=== PATIENT | female | born 2000 | race Two or more races ===

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

== ENCOUNTER 2019-09-27 23:37 | Emergency (ER) | payer MEDICAID ==
[~2019-09-27] VITALS: Ht 154.9 cm; Wt 103.6 kg
[~2019-09-27 23:37] MED LIST changes: +METH500T PO; +ONDA4TAB6 PO
[2019-09-28] MEDS ORDERED: ibuprofen tablet 400 MG TABLET PO ONE (03:35)
[2019-09-28 03:50] VITALS: BP 138/88
== END 2019-09-28 03:52 | disposition home or self-care (01) ==
LOC: ER 23:37
DX: S93.402A Sprain of unspecified ligament of left ankle, initial encounter (principal); Z79.899 Other long term (current) drug therapy; W10.9XXA Fall (on) (from) unspecified stairs and steps, initial encounter; Y93.89 Activity, other specified; Y92.89 Other specified places as the place of occurrence of the external cause; Y99.8 Other external cause status
CPT/HCPCS: 73610; 99283

== ENCOUNTER 2020-05-23 09:46 | Emergency (ER) | payer MEDICAID ==
[~2020-05-23] VITALS: Ht 154.9 cm; Wt 99.5 kg
[2020-05-23] MEDS ORDERED: ondansetron/PF 4mg/2ml inj IV ONE (10:30)
[2020-05-23] MEDS ORDERED: normal saline 1000ML IV soln IVB ONE (10:30)
[2020-05-23 10:31] LABS: URINE HCG NEGATIVE (NEG)
[2020-05-23 10:32] LABS: CLARITY,URINE CLOUDY (Clear); COLOR,URINE YELLOW (Yellow); GLUCOSE, URINE NEGATIVE (Neg); KETONES,URINE NEGATIVE (Neg); LEUKOCYTE ESTERASE ,URINE NEGATIVE (Neg); NITRITES, URINE NEGATIVE (Neg); OCCULT BLOOD,URINE SMALL (Neg); PROTEIN,URINE TRACE mg/dl (Neg)
[2020-05-23 10:33] LABS: UA COLLECTION TYPE CLN CATCH MIDSTREAM
[2020-05-23 10:40] LABS: BASOPHILS # (AUTO) 0.1 X10'3 (0-0.2); BASOPHILS % (AUTO) 0.8 % (0-1); EOSINOPHILS # (AUTO) 0.1 X10'3 (0-0.9); EOSINOPHILS % (AUTO) 1.7 % (0-6); HEMATOCRIT 41.4 % (35.0-45.0); HEMOGLOBIN 13.9 g/dl (12.0-16.0); LYMPHOCYTES # (AUTO) 2.5 X10'3 (1.1-4.8); LYMPHOCYTES % (AUTO) 30.3 % (21-51); MEAN CORPUSCULAR HEMOGLOBIN 27.7 PG (27.0-31.0); MEAN CORPUSCULAR HGB CONC 33.7 g/dL (33.0-36.5); MEAN CORPUSCULAR VOLUME 82.1 FL (78-98); MEAN PLATELET VOLUME 8.4 FL (7.4-10.4); MONOCYTES # (AUTO) 0.4 X10'3 (0-0.9); MONOCYTES % (AUTO) 4.9 % (2-12); NEUTROPHILS # (AUTO) 5.2 X10'3 (1.8-7.7); NEUTROPHILS % (AUTO) 62.3 % (42-75); PLATELET COUNT 399 X10'3 (140-440); RED BLOOD COUNT 5.04 X10'6 (4.20-5.60); RED CELL DISTRIBUTION WIDTH 13.3 % (11.5-14.5); WHITE BLOOD COUNT 8.4 X10'3 (4.5-11.0)
[2020-05-23 10:48] LABS: MUCUS STRANDS MANY /LPF (Neg); SQUAMOUS EPITHELIAL CELL,UR MANY /LPF (FEW)
[2020-05-23 10:50] LABS: BACTERIA,URINE 2+ /HPF (Neg); WBC,URINE 0-4 /HPF (0-4)
[2020-05-23 10:51] LABS: ALANINE AMINOTRANSFERASE 29 U/L (12-78); ALBUMIN 3.5 G/DL (3.4-5.0); ALBUMIN/GLOBULIN RATIO 0.9 (1.1-1.5); ALKALINE PHOSPHATASE 130 IU/L (20-180); ANION GAP 7 (8-16); ASPARTATE AMINO TRANSFERASE 19 U/L (10-37); BILIRUBIN,TOTAL 0.4 MG/DL (0.1-1.0); BLOOD UREA NITROGEN 9 MG/DL (7-18); BUN/CREATININE RATIO 13.6 (6.6-38.0); CALCIUM 8.7 MG/DL (8.5-10.1); CHLORIDE 104 MMOL/L (99-107); CREATININE 0.66 MG/DL (0.40-0.90); GLUCOSE 87 MG/DL (70-104); LIPASE 62 U/L (73-393); SODIUM 137 MMOL/L (135-145); TOTAL CARBON DIOXIDE 25.6 MMOL/L (24-32); TOTAL PROTEIN 7.3 G/DL (6.4-8.2); eGFR > 90 ML/MIN
[2020-05-23] MEDS ORDERED: ONDA4TAB6 PO (11:01)
[2020-05-23 12:20] VITALS: BP 121/82
== END 2020-05-23 12:21 | disposition home or self-care (01) ==
LOC: ER 09:46
DX: A08.4 Viral intestinal infection, unspecified (principal); R19.7 Diarrhea, unspecified; Z79.899 Other long term (current) drug therapy; R10.11 Right upper quadrant pain
CPT/HCPCS: 36415; 80053; 81001; 81025; 83690; 85025; 96361; 96374; 99283; J2405; J7030

== ENCOUNTER 2020-07-05 10:59 | Emergency (ER) | payer MEDICAID ==
[~2020-07-05] VITALS: Ht 154.9 cm; Wt 100.0 kg
--- NOTE | 2020-07-05 11:46 | NUR ---
PT OFFERED ICE PACK BUT REFUSING.
[2020-07-05] MEDS ORDERED: TETanus/Pertussis (Acell)/Diphther VAC/PF (Tdap-Adult) 0.5ml syringe IMVAC ONE (12:00)
[2020-07-05] MEDS ORDERED: bacitracin 15gm ointment TP ONE (12:00)
[2020-07-05 13:28] VITALS: BP 124/72
== END 2020-07-05 13:51 | disposition home or self-care (01) ==
LOC: ER 10:59
DX: M25.561 Pain in right knee (principal); M25.562 Pain in left knee; M25.512 Pain in left shoulder; R51.9 Headache, unspecified; Z79.899 Other long term (current) drug therapy; W19.XXXA Unspecified fall, initial encounter; Y93.89 Activity, other specified; Y92.89 Other specified places as the place of occurrence of the external cause; Y99.8 Other external cause status
CPT/HCPCS: 73564; 90471; 90715; 99283

== ENCOUNTER 2021-03-27 13:24 | Emergency (ER) | payer MEDICAID ==
[~2021-03-27] VITALS: Ht 154.9 cm; Wt 224.0 kg
== END 2021-03-27 14:16 | disposition home or self-care (01) ==
LOC: ER 13:24
DX: R06.02 Shortness of breath (principal); Z20.822 Contact with and (suspected) exposure to COVID-19; Z79.899 Other long term (current) drug therapy
CPT/HCPCS: 87635; 99283; C9803

== ENCOUNTER 2025-03-21 16:46 | Emergency (ER) | payer MEDICAID ==
[~2025-03-21] VITALS: Ht 154.9 cm; Wt 117.3 kg
[2025-03-21 16:53] VITALS: BP_SYST 1; PULSE 87; RESP 15; O2SAT 98
--- NOTE | 2025-03-21 17:22 | RADIOLOGY REPORT ---
EXAM: DI FOOT, COMPLETE (3VW MIN) REASON FOR EXAM: FOOT PAIN RIGHT TECHNIQUE: AP, lateral, and oblique views of the right foot are submitted for review. COMPARISON: None FINDINGS: The bones demonstrate normal mineralization. There is no acute fracture or dislocation. Th e joint spaces are grossly maintained. The soft tissues are grossly unremarkable. IMPRESSION: No radiographic abnormality of the right foot.
--- NOTE | 2025-03-21 18:04 | Physician Documentation ---
History of Present Illness ~ Chief Complaint: Ankle pain Stated Complaint: FALL/R LEG PAIN Time Seen by MD: 17:01 [facility] Patient is seen today with complaints of pain of her right ankle after she rolled it just prior to arrival earlier today. Patient states she has never broken any of her ankle bones but states she has rolled her ankles many many times in the past. Patient has no new or other concern or complaint at this time. She states her right foot almost feels a little numb. Tetanus witin 5 years: No (Unkn) Medication Reconciliation Allergies: Coded Allergies: No Known Allergies (Unverified , 10/04/09) Scheduled Methocarbamol (Robaxin), 1 TAB PO Q8H Ondansetron Hcl (Zofran), 1 TAB PO Q6H Scheduled PRN Ondansetron Hcl (Zofran), 1 TAB PO Q6H PRN for nausea/vomiting Miscellaneous Medications Home Med List (No Home Medications), (Reported) Past Medical History Past Medical History: No Pertinent History Past Surgical History: no surgical history Alcohol Use: None Drug Use: none Lives with: Family Lives In: Home Occupation: student Review of Systems Constitutional: Denies: chills, fever, weakness Eyes: Denies: pain, blurred vision ENT: Denies: ear pain, nose pain, throat pain, mouth pain Respiratory: Denies: cough, shortness of breath Cardiovascular: Denies: chest pain, palpitations Gastrointestinal: Denies: abdominal pain, nausea, vomiting Genitourinary: Denies: burning, dysuria Female Genitalia: Denies: vaginal discharge, pelvic pain Neurological: Denies: headache, dizziness Musculoskeletal: Denies: pain, swelling Integumentary: Denies: rash, lesions Allergic/Immunologic: Denies: hives, itching Hematologic/Lymphatic: Denies: no symptoms reported Psychiatric: Denies: depression, anxiety Physical Exam Vital Signs: Temperature: 99.2, Heart Rate: 87, Respiratory Rate: 15, BP: 1/, Pulse Oximetry: 98, Weight: 117.270 Oxygen Flow Rate: 0 Physical Exam General: Awake and Alert, no acute distress. HEENT: Conjunctiva pink, Sclera clear, Mucus Membranes moist. Neck: Supple without masses and tenderness. Resp: Unlabored. Lungs clear to auscultation bilaterally. Heart: Regular Rate and rhythm, normal S1 and S2 without murmur, rub or gallop. Musculoskeletal: Patient on exam does have tenderness to palpation of the lateral malleoli and swelling of the lateral right ankle. Patient is neurovascularly intact distally. Motor function and strength intact distally. Extremities: No cyanosis,clubbing or edema. Skin: Warm and Dry. Progress Results/Orders Results/Orders Vital Signs 03/21/25 16:53 Temp 99.2 Pulse 87 Resp 15 B/P (MAP) 1/ Pulse Ox 98 O2 Flow Rate 0 EKG/XRAY/CT/US/VASC/MRI Bone/Soft Tissue X-Ray (Ext.) : Additional Comment X-ray interpreted by myself today shows no sign of acute fracture, no osteolytic or blastic lesions. Bones in anatomic alignment. DIAGNOSTIC RADIOLOGY Patient: BOWEN GUERRA Medical Record: [id number] [facility] : 2000, Age: 24 Sex: Female Location: ER Patient Status: [facility] ER Service Date/Time: 03/21/251703 Ordering Physician: LEILANI HUDSON MD Exam: FOOT, COMPLETE (3VW MIN) EXAM: DI FOOT, COMPLETE (3VW MIN) REASON FOR EXAM: FOOT PAIN RIGHT TECHNIQUE: AP, lateral, and oblique views of the right foot are submitted for review. COMPARISON: None FINDINGS: The bones demonstrate normal mineralization. There is no acute fracture or dislocation. The joint spaces are grossly maintained. The soft tissues are grossly unremarkable. IMPRESSION: No radiographic abnormality of the right foot. Electronically Signed by:MARC JANG MD Date & Time: 03/21/251718 Dictated by: MARC JANG MD Dictation date and time: 03/21/251718 Primary Care Provider: NO PRIMARY CARE PROVIDER cc: LEILANI HUDSON MD ~ Medical Decision Making Findings Patient is seen today with complaints of pain of her right ankle after she rolled it just prior to arrival earlier today. Patient states she has never broken any of her ankle bones but states she has rolled her ankles many many times in the past. Patient has no new or other concern or complaint at this time. She states her right foot almost feels a little numb. Patient did have x-ray of the right foot and ankle that showed no sign of acute fracture. Patient will rest, ice, compress, elevate the right ankle 20 minutes on 20 minutes off for the next 48-72 hours. Patient will follow up with primary care or return to ED in 7-10 days if no better or as needed sooner for repeat x- ray. Return to ED with any worsening, concerning or changing symptoms. Patient given Chun bandage for compression. Departure Disposition: HOME / SELF CARE / HOMELESS Impression: Primary Impression: Sprain of ankle Qualified Codes: S93.401A - Sprain of unspecified ligament of right ankle, initial encounter Condition: Improved Discharge Instructions: Ankle Sprain Additional Instructions: Patient did have x-ray of the right foot and ankle that showed no sign of acute fracture. Patient will rest, ice, compress, elevate the right ankle 20 minutes on 20 minutes off for the next 48-72 hours. Patient will follow up with primary care or return to ED in 7-10 days if no better or as needed sooner for repeat x- ray. Return to ED with any worsening, concerning or changing symptoms. Patient given Chun bandage for compression. Referrals: NO PRIMARY CARE PROVIDER (PCP) Signature Scribe Signature: No scribe Attestation: No scribe DIMITRIS RASMUSSEN PAC Mar 21, 2025 18:04
[2025-03-21 18:15] VITALS: TEMP 99.2
== END 2025-03-21 18:16 | disposition home or self-care (01) ==
LOC: ER 16:47
DX: S93.491A Sprain of other ligament of right ankle, initial encounter (principal); Z79.899 Other long term (current) drug therapy; X50.1XXA Overexertion from prolonged static or awkward postures, initial encounter; Y93.89 Activity, other specified; Y92.89 Other specified places as the place of occurrence of the external cause; Y99.8 Other external cause status
CPT/HCPCS: 73630; 99283; A6449